=== PATIENT | male | born 1970 | race American Indian/Alaskan Native ===

== ENCOUNTER 2018-11-06 09:13 | Emergency (ER) | payer SELFPAY ==
[2018-11-06] MEDS ORDERED: Pantoprazole 40 MG Vial IVPUSH ONE (09:26)
[2018-11-06 09:27] VITALS: BP 121/71
[2018-11-06] MEDS ORDERED: Lactated Ringers 1,000 ML IV ONE (09:27)
[2018-11-06] MEDS ORDERED: Pantoprazole 40 MG in Sodium Chloride 0.9% 100 ML IV SCH (09:30)
[2018-11-06 09:53] LABS: ANION GAP 18.5; CHLORIDE,CL 95 mmol/L (101-111); SODIUM,NA 136 mmol/L (135-145)
[2018-11-06] MEDS ORDERED: HYDROmorphone 1 MG/ML Syringe IVPUSH ONE (10:14)
--- NOTE | 2018-11-06 10:32 | EDM.PDOC ---
Scribed by Nathalia Patricia 11/06/18 1026 for Carla Daugherty NP ED HPI GENERAL MEDICAL PROBLEM - General Chief Complaint: Gastrointestinal Problem Stated Complaint: came by ambulance Time Seen by Provider: 11/06/18 09:22 Source of Information: Reports: Patient, EMS, EMS Notes Reviewed, RN, RN Notes Reviewed History Limitations: Reports: No Limitations - History of Present Illness INITIAL COMMENTS - FREE TEXT/NARRATIVE: Patient presents to ER per [facility] with complaint of abdominal pain and vomiting blood since 1a.m. This happened in May 2018 and he was transferred to [place]. HE had endo done and showed esophagitis. He missed his 6 month follow up. He admits to drinking 2-3 bottles of beer once/ week. Admits to blood in stool. He states normal bowel movement 4 a.m. HE rates his pain 9/10. Onset: Today Duration: Getting Worse Location: Reports: Abdomen Quality: Reports: Same as Previous Episode Severity: Severe Improves with: Reports: None Worsens with: Reports: None Associated Symptoms: Reports: No Other Symptoms Abdominal Pain Score (Numeric/FACES): 9 - Related Data Allergies Allergy/AdvReac Type Severity Reaction Status Date / Time No Known Allergies Allergy Verified 11/06/18 09:23 Home Meds: Home Meds . [No Known Home Meds] 03/14/16 [History] Past Medical History - Past Health History Medical/Surgical History: Denies Medical/Surgical History HEENT History: Reports: None Cardiovascular History: Reports: None Respiratory History: Reports: None Gastrointestinal History: Reports: Gastritis, GI Bleed, Hepatitis (Hep C), PUD, Other (See Below) (umbilical hernia) Genitourinary History: Reports: None Musculoskeletal History: Reports: None Neurological History: Reports: Neuropathy, Diabetic Psychiatric History: Reports: Addiction Endocrine/Metabolic History: Reports: Diabetes, Type II Hematologic History: Reports: None Immunologic History: Reports: None Oncologic (Cancer) History: Reports: None Dermatologic History: Reports: None - Past Surgical History Cardiovascular Surgical History: Reports: None GI Surgical History: Reports: None Male Surgical History: Reports: None Social & Family History - Family History Family Medical History: Noncontributory - Tobacco Use Smoking Status *Q: Current Every Day Smoker (1 cigarette a day) - Caffeine Use Caffeine Use: Reports: Coffee, Energy Drinks, Soda, Tea - Living Situation & Occupation Living situation: Reports: , with Family Occupation: Employed ED ROS GENERAL - Review of Systems Review Of Systems: ROS reveals no pertinent complaints other than HPI. ED EXAM, GI/ABD - Physical Exam Exam: See Below Exam Limited By: No Limitations General Appearance: Alert, WD/WN, No Apparent Distress Eyes: Bilateral: Normal Appearance Ears: Normal External Exam, Normal Canal, Hearing Grossly Normal, Normal TMs Nose: Normal Inspection, Normal Mucosa, No Blood Throat/Mouth: Normal Inspection, Normal Lips, Normal Teeth, Normal Gums, Normal Oropharynx, Normal Voice, No Airway Compromise Head: Atraumatic, Normocephalic Neck: Normal Inspection, Supple, Non-Tender, Full Range of Motion Respiratory/Chest: No Respiratory Distress, Lungs Clear, Normal Breath Sounds, No Accessory Muscle Use, Chest Non-Tender Cardiovascular: Normal Peripheral Pulses, Regular Rate, Rhythm, No Edema, No Gallop, No JVD, No Murmur, No Rub GI/Abdominal Exam: Tender (very tender epigastric) (Male) Exam: Deferred Rectal (Males) Exam: Deferred Back Exam: Normal Inspection, Full Range of Motion, NT Extremities: Normal Inspection, Normal Range of Motion, Non-Tender, Normal Capillary Refill, No Pedal Edema Neurological: Alert, Oriented, CN II-XII Intact, Normal Cognition, Normal Gait, Normal Reflexes, No Motor/Sensory Deficits Psychiatric: Normal Affect, Normal Mood Skin Exam: Warm, Dry, Intact, Normal Color, No Rash Lymphatic: No Adenopathy Course - Vital Signs Last Recorded V/S: Last Vital Signs Temp 97.3 F 11/06/18 09:24 Pulse 98 11/06/18 09:24 Resp 18 11/06/18 09:24 BP 121/71 11/06/18 09:24 Pulse Ox 100 11/06/18 09:24 - Orders/Labs/Meds Orders: Active Orders 24 hr Category Date Time Status Pantoprazole [ProTONIX IV] 40 mg Med 11/06/18 09:30 Active Sodium Chloride 0.9% [Normal Saline] 100 ml IV .CONTINUOS Medication Orders Pantoprazole Sodium 40 mg/ (Sodium Chloride) 100 mls @ 20 mls/hr IV .CONTINUOS BRIDGETT Last Admin: 11/06/18 09:39 Dose: 20 mls/hr Labs: Laboratory Tests 11/06/18 11/06/18 11/06/18 Range/Units 09:27 09:27 09:27 WBC 17.9 H (5.0-10.0) 10^3/uL RBC 5.47 (4.6-6.2) 10^6/uL Hgb 17.4 (14.0-18.0) g/dL Hct 49.0 (40.0-54.0) % MCV 89.6 (80-100) fL MCH 31.8 (27.0-34.0) pg MCHC 35.5 H (33.0-35.0) g/dL Plt Count 241 (150-450) 10^3/uL Neut % (Auto) 90.5 H (42.2-75.2) % Lymph % (Auto) 6.5 L (20.5-50.1) % [place] % (Auto) 2.8 (2-8) % Eos % (Auto) 0.1 L (1.0-3.0) % Baso % (Auto) 0.1 (0.0-1.0) % PT 9.5 (9.0-12.0) SEC INR 1.0 (0.9-1.2) Sodium 136 (135-145) mmol/L Potassium 3.5 L (3.6-5.0) mmol/L Chloride 95 L (101-111) mmol/L Carbon Dioxide 26.0 (21.0-31.0) mmol/L Anion Gap 18.5 BUN 20 H (7-18) mg/dL Creatinine 1.1 (0.6-1.3) mg/dL Est Cr Clr Drug Dosing 74.92 mL/min Estimated GFR (MDRD) > 60 BUN/Creatinine Ratio 18.18 Glucose 229 H (74-105) mg/dL Calcium 9.6 (8.4-10.2) mg/dl Total Bilirubin 2.2 H (0.2-1.0) mg/dL AST 62 H (10-42) IU/L ALT 110 H (10-60) IU/L Alkaline Phosphatase 103 (42-121) IU/L Total Protein 9.4 H (6.7-8.2) g/dl Albumin 4.6 (3.2-5.5) g/dl Globulin 4.8 Albumin/Globulin Ratio 0.96 Amylase 89 (28-100) U/L Lipase 33 (22-51) U/L Urine Color (YELLOW) Urine Appearance (CLEAR) Urine pH (5.0-9.0) Ur Specific [place] (1.005-1.030) Urine Protein (NEGATIVE) Urine Glucose (UA) (NEGATIVE) Urine Ketones (NEGATIVE) Urine Occult Blood (NEGATIVE) Urine Nitrite (NEGATIVE) Urine Bilirubin (NEGATIVE) Urine Urobilinogen (0.2-1.0) mg/dL Ur Leukocyte Esterase (NEGATIVE) Urine RBC /HPF Urine WBC (0-5/HPF) /HPF Ur Epithelial Cells /HPF Amorphous Sediment (0/HPF) /HPF Urine Bacteria (0-FEW/HPF) /HPF Urine Mucus /LPF 11/06/18 Range/Units 10:03 WBC (5.0-10.0) 10^3/uL RBC (4.6-6.2) 10^6/uL Hgb (14.0-18.0) g/dL Hct (40.0-54.0) % MCV (80-100) fL MCH (27.0-34.0) pg MCHC (33.0-35.0) g/dL Plt Count (150-450) 10^3/uL Neut % (Auto) (42.2-75.2) % Lymph % (Auto) (20.5-50.1) % [place] % (Auto) (2-8) % Eos % (Auto) (1.0-3.0) % Baso % (Auto) (0.0-1.0) % PT (9.0-12.0) SEC INR (0.9-1.2) Sodium (135-145) mmol/L Potassium (3.6-5.0) mmol/L Chloride (101-111) mmol/L Carbon Dioxide (21.0-31.0) mmol/L Anion Gap BUN (7-18) mg/dL Creatinine (0.6-1.3) mg/dL Est Cr Clr Drug Dosing mL/min Estimated GFR (MDRD) BUN/Creatinine Ratio Glucose (74-105) mg/dL Calcium (8.4-10.2) mg/dl Total Bilirubin (0.2-1.0) mg/dL AST (10-42) IU/L ALT (10-60) IU/L Alkaline Phosphatase (42-121) IU/L Total Protein (6.7-8.2) g/dl Albumin (3.2-5.5) g/dl Globulin Albumin/Globulin Ratio Amylase (28-100) U/L Lipase (22-51) U/L Urine Color [place] (YELLOW) Urine Appearance Slightly cloudy (CLEAR) Urine pH 5.5 (5.0-9.0) Ur Specific [place] >= 1.030 (1.005-1.030) Urine Protein >=300 H (NEGATIVE) Urine Glucose (UA) 100 H (NEGATIVE) Urine Ketones 80 H (NEGATIVE) Urine Occult Blood Trace-intact H (NEGATIVE) Urine Nitrite Negative (NEGATIVE) Urine Bilirubin Moderate H (NEGATIVE) Urine Urobilinogen 1.0 (0.2-1.0) mg/dL Ur Leukocyte Esterase Negative (NEGATIVE) Urine RBC 0-5 /HPF Urine WBC Not seen (0-5/HPF) /HPF Ur Epithelial Cells Moderate H /HPF Amorphous Sediment Moderate (0/HPF) /HPF Urine Bacteria Rare (0-FEW/HPF) /HPF Urine Mucus Many H /LPF Meds: Medications Generic Name Dose Route Start Last Admin Trade Name Freq PRN Reason Stop Dose Admin Pantoprazole Sodium 40 mg/ 100 mls @ 20 mls/hr 11/06/18 09:30 11/06/18 09:39 Sodium Chloride IV 20 mls/hr .CONTINUOS BRIDGETT Administration Discontinued Medications Generic Name Dose Route Start Last Admin Trade Name Freq PRN Reason Stop Dose Admin Hydromorphone HCl 1 mg 11/06/18 10:14 11/06/18 10:19 Dilaudid IVPUSH 11/06/18 10:15 1 mg ONETIME ONE Administration Lactated Ringer's 1,000 mls @ 999 mls/hr 11/06/18 09:27 11/06/18 09:39 Ringers, Lactated IV 11/06/18 10:27 999 mls/hr .BOLUS ONE Administration Pantoprazole Sodium 80 mg 11/06/18 09:26 11/06/18 09:39 Protonix Iv IVPUSH 11/06/18 09:27 80 mg .BOLUS ONE Administration Departure - Departure Time of Disposition: 10:28 Disposition: DC/Tfer to Acute Hospital 02 Condition: Fair Clinical Impression: Upper GI bleed - Discharge Information *PRESCRIPTION DRUG MONITORING PROGRAM REVIEWED*: No *COPY OF PRESCRIPTION DRUG MONITORING REPORT IN PATIENT LUPE: No Forms: ED Department Discharge, Interfacility Transfer EMTALA - My Orders Last 24 Hours: My Active Orders 11/06/18 09:30 Pantoprazole [ProTONIX IV] 40 mg Sodium Chloride 0.9% [Normal Saline] 100 ml IV .CONTINUOS - Assessment/Plan Last 24 Hours: My Active Orders 11/06/18 09:30 Pantoprazole [ProTONIX IV] 40 mg Sodium Chloride 0.9% [Normal Saline] 100 ml IV .CONTINUOS I have read and agree with the documentation that has been completed regarding this visit. By signing this record, I attest that the documentation was completed in my physical presence and is an accurate record of the encounter.
== END 2018-11-06 10:50 ==
LOC: DL.ED 09:13
DX: K92.2 Gastrointestinal hemorrhage, unspecified (principal); E11.9 Type 2 diabetes mellitus without complications; F17.210 Nicotine dependence, cigarettes, uncomplicated
CPT/HCPCS: 36415; 80053; 80305; 81001; 82150; 82271; 82272; 83605; 83690; 85025; 85610; 87040; 96365; 96368; 96375; 96376; 99285; C9113; J1170; J7050; J7120; 99284

== ENCOUNTER 2019-09-21 18:40 | Emergency (ER) | payer MEDICAID ==
--- NOTE | 2019-09-21 18:58 | EDM.PDOC ---
ED HPI GENERAL MEDICAL PROBLEM - General Chief Complaint: Respiratory Problem Stated Complaint: AMBULANCE Time Seen by Provider: 09/21/19 18:58 Source of Information: Reports: Patient, RN, RN Notes Reviewed History Limitations: Reports: No Limitations - History of Present Illness INITIAL COMMENTS - FREE TEXT/NARRATIVE: patient presents to the ER per [facility] with complaint of chest pain, midepigastric pain, RUQ pain, and SOB. Patient state pain began 2 days ago. he states he ran out of his omeprazole, and ate spare ribs 2 days ago which made him begin to vomit. Patient admits to coffee ground emesis 2 days ago. patient states he has a history of alcoholism, but has not drank in 2 months. Patient states history of gastric ulcers, and states he has some kidney dysfunction but is unsure what. Patient states last bowel movement was this morning,was normal for him, and denies blood in the stool. Patient relates epigastric pain a 10 on 10. Patient states he still has his gallbladder. Admits to fever and chills. Onset: Gradual Onset Date: 09/19/19 Location: Reports: Abdomen Quality: Reports: Sharp, Stabbing Severity: Moderate Improves with: Reports: None Worsens with: Reports: None Associated Symptoms: Reports: cough w sputum, Fever/Chills, Loss of Appetite, Nausea/Vomiting, Shortness of Breath Anterior Chest Pain Score (Numeric/FACES): 5 Right Abdomen Pain Score (Numeric/FACES): 6 - Related Data Allergies Allergy/AdvReac Type Severity Reaction Status Date / Time No Known Allergies Allergy Verified 09/21/19 18:59 Home Meds: Home Meds Omeprazole 20 mg PO BID 09/21/19 [History] Past Medical History - Past Health History Medical/Surgical History: Denies Medical/Surgical History HEENT History: Reports: None Cardiovascular History: Reports: None Respiratory History: Reports: None Gastrointestinal History: Reports: Gastritis, GI Bleed, Hepatitis, PUD, Other ( See Below) Genitourinary History: Reports: None Musculoskeletal History: Reports: None Neurological History: Reports: Neuropathy, Diabetic Psychiatric History: Reports: Addiction Endocrine/Metabolic History: Reports: Diabetes, Type II Hematologic History: Reports: None Immunologic History: Reports: None Oncologic (Cancer) History: Reports: None Dermatologic History: Reports: None - Infectious Disease History Infectious Disease History: Reports: None - Past Surgical History Head Surgeries/Procedures: Reports: None Cardiovascular Surgical History: Reports: None GI Surgical History: Reports: None Male Surgical History: Reports: None Social & Family History - Family History Family Medical History: Noncontributory - Tobacco Use Smoking Status *Q: Current Every Day Smoker Years of Tobacco use: 28 Packs/Tins Daily: 0.2 - Caffeine Use Caffeine Use: Reports: Soda - Recreational Drug Use Recreational Drug Use: No - Living Situation & Occupation Living situation: Reports: , with Family Occupation: Employed ED ROS GENERAL - Review of Systems Review Of Systems: Comprehensive ROS is negative, except as noted in HPI. ED EXAM, GENERAL - Physical Exam Exam: See Below Exam Limited By: No Limitations General Appearance: Alert, WD/WN, Moderate Distress Eye Exam: Bilateral Eye: EOMI, Normal Inspection Ears: Normal External Exam, Hearing Grossly Normal Nose: Normal Inspection Throat/Mouth: Normal Inspection, Normal Voice, No Airway Compromise Head: Atraumatic, Normocephalic Neck: Normal Inspection, Supple, Non-Tender, Full Range of Motion Respiratory/Chest: No Respiratory Distress, No Accessory Muscle Use, Chest Non- Tender, Decreased Breath Sounds (throughout), Crackles (bases bilaterally), Wheezing (right middle lobe) Cardiovascular: Normal Peripheral Pulses, Regular Rate, Rhythm, No Edema, No Gallop, No JVD, No Murmur, No Rub Peripheral Pulses: 2+: Radial (L), Radial (R) GI/Abdominal: Normal Bowel Sounds, Soft, Tender (epigastrium and RUQ) (Male) Exam: Deferred Rectal (Males) Exam: Deferred Back Exam: Normal Inspection, Full Range of Motion, NT Extremities: Normal Inspection, Normal Range of Motion, Non-Tender, No Pedal Edema, Normal Capillary Refill Neurological: Alert, Oriented, CN II-XII Intact, Normal Cognition, Normal Gait, Normal Reflexes, No Motor/Sensory Deficits Psychiatric: Normal Affect, Normal Mood, Anxious Skin Exam: Warm, Dry, Intact, Normal Color, No Rash Lymphatic: No Adenopathy Course - Vital Signs Last Recorded V/S: Last Vital Signs Temp 97.8 F 09/21/19 20:13 Pulse 75 09/21/19 20:13 Resp 22 H 09/21/19 20:13 BP 141/89 H 09/21/19 20:13 Pulse Ox 93 L 09/21/19 20:13 - Orders/Labs/Meds Orders: Active Orders 24 hr Category Date Time Status EKG Documentation Completion [RC] STAT Care 09/21/19 19:02 Active Labs: Laboratory Tests 09/21/19 09/21/19 09/21/19 Range/Units 18:45 18:45 18:45 WBC 12.9 H (5.0-10.0) 10^3/uL RBC 3.51 L (4.6-6.2) 10^6/uL Hgb 11.1 L D (14.0-18.0) g/dL Hct 32.3 L (40.0-54.0) % MCV 92.0 (80-100) fL MCH 31.6 (27.0-34.0) pg MCHC 34.4 (33.0-35.0) g/dL Plt Count 234 (150-450) 10^3/uL Neut % (Auto) 72.1 (42.2-75.2) % Lymph % (Auto) 13.8 L (20.5-50.1) % [place] % (Auto) 10.6 H (2-8) % Eos % (Auto) 3.3 H (1.0-3.0) % Baso % (Auto) 0.2 (0.0-1.0) % Sodium 135 (135-145) mmol/L Potassium 4.3 (3.6-5.0) mmol/L Chloride 105 (101-111) mmol/L Carbon Dioxide 22.0 (21.0-31.0) mmol/L Anion Gap 12.3 BUN 64 H D (7-18) mg/dL Creatinine 1.6 H (0.6-1.3) mg/dL Est Cr Clr Drug Dosing 50.95 mL/min Estimated GFR (MDRD) 46 BUN/Creatinine Ratio 40.00 Glucose 161 H (74-105) mg/dL Calcium 7.4 L D (8.4-10.2) mg/dl Total Bilirubin 0.8 (0.2-1.0) mg/dL AST 26 (10-42) IU/L ALT 41 (10-60) IU/L Alkaline Phosphatase 74 (42-121) IU/L Troponin I 0.04 H* (0.00-0.02) ng/ml B-Natriuretic Peptide (0-100) pg/ml Total Protein 6.5 L (6.7-8.2) g/dl Albumin 2.8 L (3.2-5.5) g/dl Globulin 3.7 Albumin/Globulin Ratio 0.76 Amylase 63 (28-100) U/L Lipase 53 H (22-51) U/L 12/12/19 Range/Units 18:45 WBC (5.0-10.0) 10^3/uL RBC (4.6-6.2) 10^6/uL Hgb (14.0-18.0) g/dL Hct (40.0-54.0) % MCV (80-100) fL MCH (27.0-34.0) pg MCHC (33.0-35.0) g/dL Plt Count (150-450) 10^3/uL Neut % (Auto) (42.2-75.2) % Lymph % (Auto) (20.5-50.1) % [place] % (Auto) (2-8) % Eos % (Auto) (1.0-3.0) % Baso % (Auto) (0.0-1.0) % Sodium (135-145) mmol/L Potassium (3.6-5.0) mmol/L Chloride (101-111) mmol/L Carbon Dioxide (21.0-31.0) mmol/L Anion Gap BUN (7-18) mg/dL Creatinine (0.6-1.3) mg/dL Est Cr Clr Drug Dosing mL/min Estimated GFR (MDRD) BUN/Creatinine Ratio Glucose (74-105) mg/dL Calcium (8.4-10.2) mg/dl Total Bilirubin (0.2-1.0) mg/dL AST (10-42) IU/L ALT (10-60) IU/L Alkaline Phosphatase (42-121) IU/L Troponin I (0.00-0.02) ng/ml B-Natriuretic Peptide 602 H (0-100) pg/ml Total Protein (6.7-8.2) g/dl Albumin (3.2-5.5) g/dl Globulin Albumin/Globulin Ratio Amylase (28-100) U/L Lipase (22-51) U/L Meds: Medications Discontinued Medications Generic Name Dose Route Start Last Admin Trade Name Freq PRN Reason Stop Dose Admin Fentanyl 100 mcg 09/21/19 20:02 09/21/19 20:09 Sublimaze IVPUSH 09/21/19 20:03 100 mcg ONETIME ONE Administration Sodium Chloride 1,000 mls @ 999 mls/hr 09/21/19 19:13 09/21/19 19:24 Normal Saline IV 09/21/19 20:13 999 mls/hr .BOLUS ONE Administration Azithromycin 500 mg/ Sodium 250 mls @ 250 mls/hr 09/21/19 19:40 09/21/19 20: 01 Chloride IV 09/21/19 20:39 250 mls/hr ONETIME ONE Administration Ceftriaxone Sodium 1 gm/ 50 mls @ 50 mls/hr 09/21/19 19:54 09/21/19 20:11 Sodium Chloride IV 09/21/19 20:53 50 mls/hr ONETIME ONE Administration Sodium Chloride 1,000 mls @ 200 mls/hr 09/21/19 20:02 09/21/19 20:10 Normal Saline IV 09/22/19 01:01 200 mls/hr .BOLUS ONE Administration Morphine Sulfate 2 mg 09/21/19 19:13 09/21/19 19:23 Morphine IVPUSH 09/21/19 19:14 2 mg ONETIME ONE Administration Ondansetron HCl 4 mg 09/21/19 20:04 09/21/19 20:09 Zofran IV 09/21/19 20:05 4 mg ONETIME ONE Administration Pantoprazole Sodium 80 mg 09/21/19 19:36 09/21/19 19:58 Protonix Iv IVPUSH 09/21/19 19:37 80 mg .BOLUS ONE Administration - Radiology Interpretation Free Text/Narrative:: chest x-ray; FINDINGS: Tubes, catheters and devices: EKG leads overlie the chest. Lungs: There are extensive bilateral ill-defined opacities. These are more pronounced on the right than the left. Pleural space: There are no pleural effusions present. Heart/Mediastinum: The heart is not enlarged. The pulmonary arteries are not enlarged. Bones/joints: Unremarkable IMPRESSION: Bilateral pneumonia. Thank you for allowing us to participate in the care of your patient. Dictated and Authenticated by: Aniceto Oliveira MD 09/21/2019 7:36 PM Central Time ([place] & [place]) See radiologist's report - Re-Assessments/Exams Free Text/Narrative Re-Assessment/Exam: 09/21/19 21:14 discussed patient case with Dr. Bauman who agreed to accept the patient for transfer to [facility]. Departure - Departure Time of Disposition: 20:25 Disposition: DC/Tfer to Acute Hospital 02 Condition: Fair, Serious Clinical Impression: Acute renal failure Qualifiers: Acute renal failure type: unspecified Qualified Code(s): N17.9 - Acute kidney failure, unspecified Pneumonia Qualifiers: Pneumonia type: due to unspecified organism Laterality: bilateral Lung location : unspecified part of lung Qualified Code(s): J18.9 - Pneumonia, unspecified organism Gastric ulcer Qualifiers: Gastric ulcer chronicity: chronic Gastric ulcer complication status: unspecified whether hemorrhage or perforation present Qualified Code(s): K25.7 - Chronic gastric ulcer without hemorrhage or perforation - Discharge Information *PRESCRIPTION DRUG MONITORING PROGRAM REVIEWED*: No *COPY OF PRESCRIPTION DRUG MONITORING REPORT IN PATIENT LUPE: No Referrals: PCP,Unobtain [Primary Care Provider] - Forms: ED Department Discharge, Interfacility Transfer [facility] Sepsis Event Note - Evaluation Sepsis Screening Result: No Definite Risk - Focused Exam Vital Signs: Vital Signs Temp Pulse Resp BP Pulse Ox 09/21/19 20:13 97.8 F 75 22 H 141/89 H 93 L 09/21/19 18:46 99 F 72 21 H 140/80 98 Date Exam was Performed: 09/21/19 Time Exam was Performed: 21:11 - My Orders Last 24 Hours: My Active Orders 09/21/19 19:02 EKG Documentation Completion [RC] STAT - Assessment/Plan Last 24 Hours: My Active Orders 09/21/19 19:02 EKG Documentation Completion [RC] STAT
[2019-09-21] MEDS ORDERED: Sodium Chloride 0.9% 1,000 ML IV ONE ×2 (19:13→20:02)
[2019-09-21] MEDS ORDERED: Morphine 2 MG/ML Syringe IVPUSH ONE (19:13)
[2019-09-21 19:20] LABS: ANION GAP 12.3
[2019-09-21] MEDS ORDERED: Pantoprazole 40 MG Vial IVPUSH ONE (19:36)
[2019-09-21] MEDS ORDERED: Azithromycin 500 MG in Sodium Chloride 0.9% 250 ML IV ONE (19:40)
[2019-09-21] MEDS ORDERED: cefTRIAXone 1 GM in Sodium Chloride 0.9% 50 ML IV ONE (19:54)
[2019-09-21] MEDS ORDERED: fentaNYL 100 MCG/2 ML SDV IVPUSH ONE (20:02)
[2019-09-21] MEDS ORDERED: Ondansetron 4 MG/2 ML SDV IV ONE (20:04)
[2019-09-21 20:14] VITALS: BP 141/89; PULSE 75
== END 2019-09-21 20:25 ==
LOC: DL.ED 18:40
DX: K25.7 Chronic gastric ulcer without hemorrhage or perforation (principal); N17.9 Acute kidney failure, unspecified; J18.9 Pneumonia, unspecified organism; E11.40 Type 2 diabetes mellitus with diabetic neuropathy, unspecified; F17.210 Nicotine dependence, cigarettes, uncomplicated; Z79.899 Other long term (current) drug therapy
CPT/HCPCS: 36415; 71045; 80053; 82150; 83690; 83880; 84484; 85025; 93005; 96361; 96365; 96375; 99285; C9113; J0456; J0696; J2270; J2405; J3010; J7030; J7050

== ENCOUNTER 2019-09-28 01:59 | Emergency (ER) | payer MEDICAID ==
[2019-09-28 01:47] VITALS: BP 145/77; PULSE 88
--- NOTE | 2019-09-28 01:59 | EDM.PDOC ---
ED HPI GENERAL MEDICAL PROBLEM - General Chief Complaint: Respiratory Problem Stated Complaint: RACHEL BALTAZAR AMUBLANCE Time Seen by Provider: 09/28/19 01:45 Source of Information: Reports: Patient, EMS History Limitations: Reports: No Limitations - History of Present Illness INITIAL COMMENTS - FREE TEXT/NARRATIVE: ED via [facility] with c/o SOB and cough with bloody sputum. Just home from [facility] this afternoon, Hospitalized x 5 days for pneumonia . Home on Levaquin, lasix meptoprolol, and prilosec. Left meds in [facility] van. Dropped off at [facility] and had to walk 1/2 mile home. Increased SOB since that time. Admitted smoking cannabis this afternoon. Unknown fever . No GI sx. SOB worse when attempting to lie flat. Right Flank Pain Score (Numeric/FACES): 8 - Related Data Allergies Allergy/AdvReac Type Severity Reaction Status Date / Time No Known Allergies Allergy Verified 09/21/19 18:59 Home Meds: Home Meds Omeprazole 20 mg PO BID 09/21/19 [History] Past Medical History - Past Health History Medical/Surgical History: Denies Medical/Surgical History HEENT History: Reports: None Cardiovascular History: Reports: None Respiratory History: Reports: None Gastrointestinal History: Reports: Gastritis, GI Bleed, Hepatitis, PUD, Other ( See Below) Genitourinary History: Reports: None Musculoskeletal History: Reports: None Neurological History: Reports: Neuropathy, Diabetic Psychiatric History: Reports: Addiction Endocrine/Metabolic History: Reports: Diabetes, Type II Hematologic History: Reports: None Immunologic History: Reports: None Oncologic (Cancer) History: Reports: None Dermatologic History: Reports: None - Infectious Disease History Infectious Disease History: Reports: None - Past Surgical History Head Surgeries/Procedures: Reports: None Cardiovascular Surgical History: Reports: None GI Surgical History: Reports: None Male Surgical History: Reports: None Social & Family History - Family History Family Medical History: Noncontributory - Tobacco Use Smoking Status *Q: Never Smoker - Caffeine Use Caffeine Use: Reports: Soda - Recreational Drug Use Recreational Drug Use: Yes Drug Use in Last 12 Months: Yes Recreational Drug Type: Reports: Marijuana/Hashish Recreational Drug Use Frequency: Weekly Recreational Drug Last Use: 09-27-2019 - Living Situation & Occupation Living situation: Reports: , with Family Occupation: Employed ED ROS GENERAL - Review of Systems Review Of Systems: Comprehensive ROS is negative, except as noted in HPI. ED EXAM, GENERAL - Physical Exam Exam: See Below Exam Limited By: No Limitations General Appearance: Alert, No Apparent Distress Eye Exam: Bilateral Eye: EOMI, PERRL Ears: Normal External Exam, Normal TMs Nose: Normal Inspection, Normal Mucosa Throat/Mouth: Normal Inspection Head: Atraumatic, Normocephalic Neck: Normal Inspection Respiratory/Chest: Decreased Breath Sounds, Crackles (mid to base bilateral) Cardiovascular: Normal Peripheral Pulses, Regular Rate, Rhythm, No Edema GI/Abdominal: Normal Bowel Sounds, Soft Back Exam: Normal Inspection, Full Range of Motion Neurological: Alert, Oriented Psychiatric: Normal Affect Skin Exam: Warm, Dry, Intact, Wound/Incision (puncture wounds bilateral x 2 to lower posterior chest ) Course - Vital Signs Last Recorded V/S: Last Vital Signs Temp 100 F 09/28/19 01:44 Pulse 88 09/28/19 01:44 Resp 23 H 09/28/19 01:44 BP 145/77 H 09/28/19 01:44 Pulse Ox 96 09/28/19 01:44 - Orders/Labs/Meds Orders: Active Orders 24 hr Category Date Time Status EKG 12 Lead [EKG Documentation Completion] [RC] URGENT Care 09/28/19 02:05 Active Chest 2V [CR] Urgent Exams 09/28/19 01:38 Taken CULTURE BLOOD [BC] Stat Lab 09/28/19 01:48 Received CULTURE URINE [RM] Stat Lab 09/28/19 02:52 Received Labs: Laboratory Tests 09/28/19 09/28/19 09/28/19 Range/Units 01:48 01:48 01:48 WBC 15.7 H (5.0-10.0) 10^3/uL RBC 3.09 L (4.6-6.2) 10^6/uL Hgb 9.7 L (14.0-18.0) g/dL Hct 28.5 L (40.0-54.0) % MCV 92.2 (80-100) fL MCH 31.4 (27.0-34.0) pg MCHC 34.0 (33.0-35.0) g/dL Plt Count 233 (150-450) 10^3/uL Neut % (Auto) 79.5 H (42.2-75.2) % Lymph % (Auto) 10.5 L (20.5-50.1) % [place] % (Auto) 8.8 H (2-8) % Eos % (Auto) 1.0 (1.0-3.0) % Baso % (Auto) 0.2 (0.0-1.0) % Sodium 134 L (135-145) mmol/L Potassium 3.6 (3.6-5.0) mmol/L Chloride 105 (101-111) mmol/L Carbon Dioxide 21.0 (21.0-31.0) mmol/L Anion Gap 11.6 BUN 22 H D (7-18) mg/dL Creatinine 1.5 H (0.6-1.3) mg/dL Est Cr Clr Drug Dosing 54.35 mL/min Estimated GFR (MDRD) 50 BUN/Creatinine Ratio 14.66 Glucose 158 H (74-105) mg/dL Lactic Acid 0.9 (0.5-2.2) mmol/L Calcium 7.4 L (8.4-10.2) mg/dl Total Bilirubin 0.8 (0.2-1.0) mg/dL AST 20 (10-42) IU/L ALT 17 (10-60) IU/L Alkaline Phosphatase 45 (42-121) IU/L Troponin I 0.12 H* (0.00-0.02) ng/ml B-Natriuretic Peptide 1220 H (0-100) pg/ml Total Protein 5.9 L (6.7-8.2) g/dl Albumin 2.2 L (3.2-5.5) g/dl Globulin 3.7 Albumin/Globulin Ratio 0.59 Urine Color (YELLOW) Urine Appearance (CLEAR) Urine pH (5.0-9.0) Ur Specific [place] (1.005-1.030) Urine Protein (NEGATIVE) Urine Glucose (UA) (NEGATIVE) Urine Ketones (NEGATIVE) Urine Occult Blood (NEGATIVE) Urine Nitrite (NEGATIVE) Urine Bilirubin (NEGATIVE) Urine Urobilinogen (0.2-1.0) mg/dL Ur Leukocyte Esterase (NEGATIVE) Urine RBC /HPF Urine WBC (0-5/HPF) /HPF Ur Epithelial Cells (NOT SEEN) /HPF Amorphous Sediment (NOT SEEN) /HPF Urine Bacteria (0-FEW/HPF) /HPF Urine Mucus (NOT SEEN) /LPF Urine Opiates Screen (NEGATIVE) Ur Oxycodone Screen (NEGATIVE) Urine Methadone Screen (NEGATIVE) Ur Barbiturates Screen (NEGATIVE) U Tricyclic Antidepress (NEGATIVE) Ur Phencyclidine Scrn (NEGATIVE) Ur Amphetamine Screen (NEGATIVE) U Methamphetamines Scrn (NEGATIVE) Urine MDMA Screen (NEGATIVE) U Benzodiazepines Scrn (NEGATIVE) Urine Cocaine Screen (NEGATIVE) U Marijuana (THC) Screen (NEGATIVE) Ethyl Alcohol < 5 mg/dL 09/28/19 09/28/19 Range/Units 02:52 02:52 WBC (5.0-10.0) 10^3/uL RBC (4.6-6.2) 10^6/uL Hgb (14.0-18.0) g/dL Hct (40.0-54.0) % MCV (80-100) fL MCH (27.0-34.0) pg MCHC (33.0-35.0) g/dL Plt Count (150-450) 10^3/uL Neut % (Auto) (42.2-75.2) % Lymph % (Auto) (20.5-50.1) % [place] % (Auto) (2-8) % Eos % (Auto) (1.0-3.0) % Baso % (Auto) (0.0-1.0) % Sodium (135-145) mmol/L Potassium (3.6-5.0) mmol/L Chloride (101-111) mmol/L Carbon Dioxide (21.0-31.0) mmol/L Anion Gap BUN (7-18) mg/dL Creatinine (0.6-1.3) mg/dL Est Cr Clr Drug Dosing mL/min Estimated GFR (MDRD) BUN/Creatinine Ratio Glucose (74-105) mg/dL Lactic Acid (0.5-2.2) mmol/L Calcium (8.4-10.2) mg/dl Total Bilirubin (0.2-1.0) mg/dL AST (10-42) IU/L ALT (10-60) IU/L Alkaline Phosphatase (42-121) IU/L Troponin I (0.00-0.02) ng/ml B-Natriuretic Peptide (0-100) pg/ml Total Protein (6.7-8.2) g/dl Albumin (3.2-5.5) g/dl Globulin Albumin/Globulin Ratio Urine Color Yellow (YELLOW) Urine Appearance Cloudy (CLEAR) Urine pH 5.5 (5.0-9.0) Ur Specific [place] 1.025 (1.005-1.030) Urine Protein >=300 H (NEGATIVE) Urine Glucose (UA) Negative (NEGATIVE) Urine Ketones Negative (NEGATIVE) Urine Occult Blood Large H (NEGATIVE) Urine Nitrite Negative (NEGATIVE) Urine Bilirubin Negative (NEGATIVE) Urine Urobilinogen 0.2 (0.2-1.0) mg/dL Ur Leukocyte Esterase Trace H (NEGATIVE) Urine RBC 20-30 H /HPF Urine WBC 10-20 H (0-5/HPF) /HPF Ur Epithelial Cells Few (NOT SEEN) /HPF Amorphous Sediment Moderate (NOT SEEN) /HPF Urine Bacteria Few (0-FEW/HPF) /HPF Urine Mucus Moderate H (NOT SEEN) /LPF Urine Opiates Screen Negative (NEGATIVE) Ur Oxycodone Screen Positive H (NEGATIVE) Urine Methadone Screen Negative (NEGATIVE) Ur Barbiturates Screen Negative (NEGATIVE) U Tricyclic Antidepress Negative (NEGATIVE) Ur Phencyclidine Scrn Negative (NEGATIVE) Ur Amphetamine Screen Negative (NEGATIVE) U Methamphetamines Scrn Negative (NEGATIVE) Urine MDMA Screen Negative (NEGATIVE) U Benzodiazepines Scrn Negative (NEGATIVE) Urine Cocaine Screen Negative (NEGATIVE) U Marijuana (THC) Screen Positive H (NEGATIVE) Ethyl Alcohol mg/dL Meds: Medications Discontinued Medications Generic Name Dose Route Start Last Admin Trade Name Jdq PRN Reason Stop Dose Admin Furosemide 40 mg 09/28/19 02:04 09/28/19 02:12 Lasix IVPUSH 09/28/19 02:05 40 mg NOW ONE Administration Ceftriaxone Sodium 1 gm/ 50 mls @ 50 mls/hr 09/28/19 02:16 09/28/19 02:26 Sodium Chloride IV 09/28/19 03:15 50 mls/hr ONETIME ONE Administration - Radiology Interpretation Free Text/Narrative:: [facility] Final Radiology Report Call: [phone] assistance Online chat: [email or web address] Name: HUMBERTO LR Age: 48Years M Date: 09/28/2019 SSN: -- : [id number] Study: XR CHEST 2 VIEWS FRONTAL & LAT Requesting Physician: RICHARD LOTT Images: 2 Addl Studies: Provided Clinical History: Contrast: Contrast Medium: Contrast Amount: Contrast Method: CONFIDENTIALITY STATEMENT This report is intended only for use by the referring physician, and only in accordance with law. If you received this in error, call [phone]. Page 1 of 1 PROCEDURE INFORMATION: Exam: XR Chest, 2 Views Exam date and time: 09/28/2019 1:57 AM Age: 48 years old Clinical indication: Shortness of breath TECHNIQUE: Imaging protocol: XR of the chest Views: 2 views. COMPARISON: CR Chest 1V Frontal 09/21/2019 7:22 PM FINDINGS: Lungs: Bilateral perihilar infiltrates worse than the prior study. Pleural space: Unremarkable. No pleural effusion. No pneumothorax. Heart/Mediastinum: Unremarkable. No cardiomegaly. Bones/joints: Unremarkable. IMPRESSION: Worsening bilateral lung infiltrates consistent with worsening pneumonia. No evidence for pleural effusion Thank you for allowing us to participate in the care of your patient. Dictated and Authenticated by: Jassi Roper MD 09/28/2019 2:12 AM Central Time ([place] & [place]) - Re-Assessments/Exams Free Text/Narrative Re-Assessment/Exam: Dr Lawson Schwarz accepting patient . Transfer by [facility]. Departure - Departure Time of Disposition: 03:25 Disposition: DC/Tfer to Acute Hospital 02 Condition: Undetermined Clinical Impression: SOB (shortness of breath) Bilateral pneumonia Qualifiers: Pneumonia type: due to unspecified organism Lung location: unspecified part of lung Qualified Code(s): J18.9 - Pneumonia, unspecified organism Pulmonary edema Qualifiers: Chronicity: acute Qualified Code(s): J81.0 - Acute pulmonary edema - Discharge Information *PRESCRIPTION DRUG MONITORING PROGRAM REVIEWED*: No *COPY OF PRESCRIPTION DRUG MONITORING REPORT IN PATIENT LUPE: No Referrals: PCP,Unobtain [Primary Care Provider] - Forms: ED Department Discharge Sepsis Event Note - Evaluation Sepsis Screening Result: No Definite Risk - Focused Exam Vital Signs: Vital Signs Temp Pulse Resp BP Pulse Ox 09/28/19 01:44 100 F 88 23 H 145/77 H 96 Date Exam was Performed: 09/28/19 Time Exam was Performed: 06:42 - My Orders Last 24 Hours: My Active Orders 09/28/19 01:38 Chest 2V [CR] Urgent 09/28/19 01:48 CULTURE BLOOD [BC] Stat 09/28/19 02:05 EKG 12 Lead [EKG Documentation Completion] [RC] URGENT 09/28/19 02:52 CULTURE URINE [RM] Stat - Assessment/Plan Last 24 Hours: My Active Orders 09/28/19 01:38 Chest 2V [CR] Urgent 09/28/19 01:48 CULTURE BLOOD [BC] Stat 09/28/19 02:05 EKG 12 Lead [EKG Documentation Completion] [RC] URGENT 09/28/19 02:52 CULTURE URINE [RM] Stat
[2019-09-28] MEDS ORDERED: Furosemide 40 MG/4 ML VIAL IVPUSH ONE (02:04)
[2019-09-28 02:13] LABS: ANION GAP 11.6; CHLORIDE,CL 105 mmol/L (101-111); SODIUM,NA 134 mmol/L (135-145)
[2019-09-28] MEDS ORDERED: cefTRIAXone 1 GM in Sodium Chloride 0.9% 50 ML IV ONE (02:16)
== END 2019-09-28 03:28 ==
LOC: DL.ED 01:59
DX: J18.9 Pneumonia, unspecified organism (principal); J81.0 Acute pulmonary edema; E11.9 Type 2 diabetes mellitus without complications
CPT/HCPCS: 36415; 71046; 80053; 80305-QW; 81001; 83605; 83880; 84484; 85025; 87040; 87086; 93005; 96365; 96375; 99285-25; G0480; J0696; J1940; J7050

== ENCOUNTER 2023-06-29 19:12 | Emergency (ER) | payer MEDICAID, OTHER ==
[2023-06-29] MEDS ORDERED: Ketorolac 30 MG/ML SDV IM ONE (19:56)
[2023-06-29 20:38] LABS: BASOPHILS PERCENT AUTO 0.2 % (0.0-1.0); EOSINOPHILS PERCENT AUTO 0.2 % (1.0-3.0); HEMATOCRIT 43.8 % (40.0-54.0); LYMPHOCYTES PERCENT AUTO 6.7 % (20.5-50.1); MEAN CORPUSCULAR HEMOGLOBIN 30.7 pg (27.0-34.0); MEAN CORPUSCULAR HGB CONC 34.2 g/dL (33.0-35.0); MEAN CORPUSCULAR VOLUME 89.8 fL (80-100); MONOCYTES PERCENT AUTO 4.5 % (2-8); NEUTROPHILS PERCENT AUTO 88.4 % (42.2-75.2); PLATELET COUNT,PLT 270 10^3/uL (150-450); RED BLOOD CELL COUNT 4.88 10^6/uL (4.6-6.2)
[2023-06-29 21:01] LABS: PROTHROMBIN TIME 9.8 SEC (9.0-12.0); PTT,PARTIAL THROMBOPLSTIN TIME 26.3 SEC (22.0-34.0)
[2023-06-29] MEDS ORDERED: Ketorolac 30 MG/ML SDV IVPUSH ONE (21:01)
[2023-06-29 21:02] LABS: ALBUMIN 2.8 g/dL (3.4-5.0); ANION GAP 13.2 mEq/L (7-13); BILIRUBIN TOTAL 2.1 mg/dL (0.2-1.0); BUN/CREATININE RATIO 12.6 (No establ ref range); CALCIUM 8.8 mg/dL (8.5-10.1); CREATININE 1.27 mg/dL (0.70-1.30); EST CRCL DRUG DOSING (CG) 61.4 mL/min; POTASSIUM,K 4.2 mmol/L (3.5-5.1); PROTEIN TOTAL,TP 7.8 g/dL (6.4-8.2)
[2023-06-29 21:04] LABS: A/G RATIO 0.56
[2023-06-29] MEDS ORDERED: Sodium Chloride 0.9% 1,000 ML IV ONE (21:17)
[2023-06-29] MEDS ORDERED: Iopamidol 755 Mg/ML 100 ML Bottle IVPUSH ONE (21:37)
[2023-06-29 21:41] LABS: LACTIC ACID 1.7 mmol/L (0.4-2.0)
[2023-06-29] MEDS ORDERED: cefTRIAXone 2 GM Vial IVPUSH ONE (23:20)
[2023-06-29] MEDS ORDERED: Azithromycin 250 MG Tab PO ONE (23:20)
[2023-06-29 23:58] VITALS: BP 115/90; PULSE 80
== END 2023-06-29 21:52 | disposition home or self-care (01) ==
LOC: DL.ED 19:12
DX: E87.1 Hypo-osmolality and hyponatremia (principal); J18.9 Pneumonia, unspecified organism; F17.210 Nicotine dependence, cigarettes, uncomplicated; K21.9 Gastro-esophageal reflux disease without esophagitis; E11.9 Type 2 diabetes mellitus without complications; I10 Essential (primary) hypertension
CPT/HCPCS: 36415; 71101-LT; 71275; 80053; 83605; 83690; 84484; 85025; 85379; 85610; 85730; 87040; 93005; 93010; 96361; 96374; 96375; 99284; 99285-25; A9270-GY; J0696; J1885; J7030; Q9967

== ENCOUNTER 2024-10-04 20:43 | Emergency (ER) | payer MEDICAID ==
[2024-10-04 21:51] VITALS: BP 153/107; PULSE 99
== END 2024-10-04 23:02 | disposition left against medical advice (07) ==
LOC: DL.ED 20:43
DX: Z53.21 Procedure and treatment not carried out due to patient leaving prior to being seen by health care provider (principal)

== ENCOUNTER 2024-10-06 15:55 | Emergency (ER) | payer MEDICAID ==
[2024-10-06] MEDS: Ketorolac 30 MG/ML SDV IVPUSH ONE (16:07)
[2024-10-06] MEDS: Iopamidol 612 MG/ML 100 ML Bottle IVPUSH ONE (16:18)
[2024-10-06 16:21] LABS: BASOPHILS PERCENT AUTO 0.3 % (0.0-1.0); EOSINOPHILS PERCENT AUTO 0.4 % (1.0-3.0); HEMATOCRIT 40.1 % (40.0-54.0); LYMPHOCYTES PERCENT AUTO 10.5 % (20.5-50.1); MEAN CORPUSCULAR HEMOGLOBIN 31.7 pg (27.0-34.0); MEAN CORPUSCULAR HGB CONC 34.9 g/dL (33.0-35.0); MEAN CORPUSCULAR VOLUME 90.7 fL (80-100); MONOCYTES PERCENT AUTO 6.2 % (2-8); NEUTROPHILS PERCENT AUTO 82.6 % (42.2-75.2); PLATELET COUNT,PLT 321 10^3/uL (150-450); RED BLOOD CELL COUNT 4.42 10^6/uL (4.6-6.2); WHITE BLOOD CELL COUNT,WBC 15.1 10^3/uL (5.0-10.0)
[2024-10-06 16:44] LABS: LACTIC ACID 1.6 mmol/L (0.4-2.0)
[2024-10-06 16:50] LABS: ALANINE AMINOTRANSFERASE,ALT 15 U/L (16-63); ALBUMIN 2.6 g/dL (3.4-5.0); ALKALINE PHOSPHATASE 162 U/L (46-116); ANION GAP 14.3 mEq/L (7-13); ASPARTATE AMNIOTRANSFERASE,AST 15 U/L (15-37); BILIRUBIN TOTAL 0.9 mg/dL (0.2-1.0); BLOOD UREA NITROGEN,BUN 16 mg/dL (7-18); BUN/CREATININE RATIO 15.7 (No establ ref range); C-REACTIVE PROTEIN 8.46 ng/dL (<=0.50); CALCIUM 9.1 mg/dL (8.5-10.1); CARBON DIOXIDE,CO2 27 mmol/L (21-32); CHLORIDE,CL 99 mmol/L (98-107); CREATININE 1.02 mg/dL (0.70-1.30); GLUCOSE RANDOM 273 mg/dL (70-99); POTASSIUM,K 3.3 mmol/L (3.5-5.1); PROTEIN TOTAL,TP 7.9 g/dL (6.4-8.2); SODIUM,NA 137 mmol/L (136-145)
[2024-10-06 16:51] LABS: A/G RATIO 0.49; ESTIMATED GFR 88 mL/min (>=60)
[2024-10-06] MEDS ORDERED: Clindamycin Phosphate in D5W 600 MG in Premix Bag 1 BAG IV ONE (17:09)
[2024-10-06] MEDS: Piperacillin/Tazobactam 3.375 GM in Sodium Chloride 0.9% 100 ML IV ONE (17:19)
[2024-10-06] MEDS: Clindamycin in 0.9 % Sod Chlor 600 MG in Premix Bag 1 BAG IV ONE (17:46)
[2024-10-06] MEDS: HYDROmorphone 1 MG/ML Syringe IVPUSH ONE (17:53)
[2024-10-06] MEDS: VANCOmycin 1 GM in Sodium Chloride 0.9% 250 ML IV ONE (18:17)
[2024-10-06] MEDS: Lactated Ringers 1,000 ML IV SCH (18:20)
[2024-10-06 19:16] VITALS: BP 139/108; PULSE 91
[2024-10-08] MEDS: Iopamidol 612 MG/ML 100 ML Bottle IVPUSH ONE (09:23)
== END 2024-10-06 19:34 | disposition other institution (70) ==
LOC: DL.ED 15:55
DX: M65.141 Other infective (teno)synovitis, right hand (principal); I10 Essential (primary) hypertension; K21.9 Gastro-esophageal reflux disease without esophagitis; E11.9 Type 2 diabetes mellitus without complications; Z79.899 Other long term (current) drug therapy
CPT/HCPCS: 36415; 73201; 80053; 83605; 85025; 85651; 86140; 96365; 96367; 96375; 99285; J1171; J1885; J2543; J3490; J7050; J7120; Q9967

== ENCOUNTER 2024-10-10 16:33 | Emergency (ER) | payer MEDICAID | END 2024-10-10 20:55 | disposition left against medical advice (07) | LOC: DL.ED 16:33 | DX: Z53.21 Procedure and treatment not carried out due to patient leaving prior to being seen by health care provider (principal) ==